=== PATIENT | female | born 2000 | race Hispanic/Latino ===

== ENCOUNTER 2024-12-27 12:30 | Inpatient (IN) | payer OTHER ==
[~2024-12-27] VITALS: Ht 152.4 cm; Wt 48.8 kg
[2024-12-27 13:47] LABS: IMMATURE GRANULOCYTE ABSOLUTE 0.01 K/uL (0-1); NUCLEATED RED BLOOD CELLS 0.0 % (0.0-0.19); PLATELET COUNT (AUTO) 295 K/uL (130-400); RED BLOOD CELL COUNT(AUTO) 4.58 MIL/uL (4.00-5.50); RED CELL DISTRIBUTION WIDTH 12.4 % (11.0-15.5); WHITE BLOOD COUNT (AUTO) 5.2 K/uL (4.8-10.8)
--- NOTE | 2024-12-27 14:10 | EKG ---
[facility] Test Date: 2024-12-27 Test Time: 13:31:40 Pat Name: GORAN SCHROEDER Department: Patient ID: [facility] [id number] Room: Gender: F [place] Inspector: [id number] : 2000 Requested By: DIPESH SILVA Order Number: [id number] Reading MD: Darshan Durán Measurements Intervals [place] Rate: 63 P: 52 [place]: 160 QRS: 3 QRSD: 103 T: 37 QT: 422 QTc: 431 Interpretive Statements Sinus rhythm No previous ECG available for comparison Electronically Signed On 12-27-2024 16:00:14 CDT by Darshan Durán Please click the below link to view image of tracing.
[2024-12-27 14:13] LABS: ASPARTATE AMINOTRANSFERASE 24.0 U/L (10-37); CREATININE 0.6 mg/dL (0.5-1.0); GLOMERULAR FILTR. RATE CALC 128.0 mL/min (>90); GLUCOSE,RANDOM 93.0 mg/dL (70-105); SODIUM SERUM 140.0 mmol/L (136-145); TOTAL PROTEIN, SERUM 7.9 g/dL (6.0-8.3); UREA NITROGEN, BLOOD 10.0 mg/dL (7-18)
[2024-12-27 14:19] VITALS: BP 99/56; PULSE 78; RESP 17; TEMP 97.8
[2024-12-27] MEDS ORDERED: ERGO500093 PO (14:24)
[2024-12-27] MEDS ORDERED: MESA1.2T3 PO (14:24)
[2024-12-27 14:41] LABS: INR 0.97 (0.85-1.15)
[2024-12-28] VITALS (18 sets, daily range): BP systolic 101–120; BP diastolic 50–76; PULSE 64–98; RESP 15–22; TEMP 97–97.5
[2024-12-28] MEDS ORDERED: LIDOCAINE HCL MPF 1% 5ML VIAL ONE (11:43)
[2024-12-28] MEDS ORDERED: MIDAZOLAM HCL 1 MG/ML 2ML VIAL ONE (11:44)
[2024-12-28] MEDS: INVANZ 1GM+NS 50ML IVPB 50 ML IV ONE (11:55)
[2024-12-28] MEDS: LIDOCAINE 1%-EPI 1:100,000 20 ML VIAL ONE (12:08)
[2024-12-28] MEDS ORDERED: SUGAMMADEX SODIUM 200 MG/2 ML VIAL IV ONE (13:23)
--- NOTE | 2024-12-28 14:02 | OP ---
Operative Note: DATE OF PROCEDURE: 12/28/24 SURGEON: DIPESH SILVA MD JAMB CUTTER: None ANESTHESIA: General ANESTHESIOLOGIST/ED SPECIAL EDUCATION TEACHER: ED SPECIAL EDUCATION TEACHER PREOPERATIVE DIAGNOSIS: Rectal prolapse POSTOPERATIVE DIAGNOSIS: Rectal prolapse PROCEDURE: Robotic suture rectopexy ESTIMATED BLOOD LOSS: Minimal INDICATIONS: Mrs. Elias this is a very pleasant 24-year-old female presents to clinic with full-thickness rectal prolapse. She was offered surgical management wished to proceed. Complications, alternatives, risks and benefits of the procedure were discussed include but not limited to infection, bleeding, injury to surrounding structures such as blood vessels nerves and other organs, bowel injury, need for stoma, recurrence of disease and need for additional procedures. The patient voiced understanding and wished to proceed with surgery. All of the patient's questions were answered to her satisfaction. DESCRIPTION OF PROCEDURE: After informed consent was obtained, the patient was taken to the operating room and laid in the supine position. Once general endotracheal anesthesia was obtained, the patient was kept in the supine position with arms tucked. Next the abdomen was prepped and draped in the usual sterile fashion. A timeout was performed to confirm the correct patient and procedure. Next a Veress needle was placed in the supraumbilical location and confirmed to be intra-abdominal with saline drop test. Next pneumoperitoneum was obtained. The abdomen was entered with an 8mm trocars, the camera was inserted and the abdomen inspected. The remaining robotic trocars were placed in a horizontal fashion and the robot was docked. Next the rectum was retracted out of the pelvis, there was chronic thickening of the anterior peritoneal reflection consistent with prolapse. With the rectum retracted, the right lateral peritoneum was scored and open. Using both blunt and sharp dissection the periosteum of the sacral promontory was exposed. Next, the rectum was mobilized posteriorly in the presacral space down to the pelvic floor. Caution was used to not sacrifice the hypogastric nerves or the lateral stalks. Once this was mobilized, the suture rectopexy was performed. The peritoneum was secured to the sacral promotory x 2 using 0 ethibond sutures. There was adequate tension to ensure a good rectopexy. Within lower the insufflation down to 6 mmHg and there was no evidence of bleeding in the pelvis. We then placed hemostatic powder into the presacral space for added hemostasis. Next the peritoneum was closed with a running 3-0 v lock suture. We then examined the perineum and there was no evidence of rectal prolapse. The trocars were removed. The skin incisions were closed with monocryl sutures and dermabond placed as a sterile dressing. The patient tolerated the procedure well and was taken to the recovery room in stable condition. I discussed the above with the Patient's father at the completion of the case. Complications none Specimens none Counts were reported as correct x2 by nursing staff DIPESH SILVA MD Dec 28, 2024 14:02
== END 2024-12-28 16:07 | disposition home or self-care (01) | DRG 331 ==
LOC: EDSTATUS 12:30 → UNDOADMIN 12-28 07:53 → DAHIP 12-28 07:53 → DAH 12-28 07:53 → DAHIP 12-28 08:25 → EDSTATUS 12-28 12:30 → DAH 12-28 15:22
PROVIDERS: ADMIT Surgery; ATTEND Surgery
PROC: 8E0W4CZ Robotic Assisted Procedure of Trunk Region, Percutaneous Endoscopic Approach (ICD-10-PCS; 2024-12-28)
PROC: 0DQP4ZZ Repair Rectum, Percutaneous Endoscopic Approach (ICD-10-PCS; principal; 2024-12-28 11:42)
DX: K62.3 Rectal prolapse (principal)
CPT/HCPCS: 36415; 80053; 84703; 85025; 85610; 85730; 86850; 86900; 86901; 93005; A4344; G0378; J1100; J1335; J2250; J2371; J2405; J2704; J3010; J3490; J7030; J7120; A4213; A4215; A4216; A4221; A4222; A4223; A4600; A4649; A4663; A4930; A6260; J0665